=== PATIENT | female | born 1955 | race Two or more races ===

== ENCOUNTER → 2016-07-07 | Outpatient (CLI) | payer MEDICARE, OTHER ==
[~2016-07-07] VITALS: Ht 157.5 cm; Wt 76.4 kg
[~2016-07-07] MED LIST: ASPI-1093 PO; CEPH500 PO; HYDR-3965 PO; HYDR-4031 PO; HYDR200T4 PO; IBUP-2070 PO; PROZ10 PO; TRIAMCINOLONE 0.1% 15 GM OINTMENT TP ONE
[2016-07-07 14:07] VITALS: BP 112/70
== END | disposition home or self-care (01) ==
LOC: HBOWC 13:56
PROVIDERS: ATTEND Emergency Medicine
DX: I87.2 Venous insufficiency (chronic) (peripheral) (principal); L97.811 Non-pressure chronic ulcer of other part of right lower leg limited to breakdown of skin; Z86.718 Personal history of other venous thrombosis and embolism; F32.9 Major depressive disorder, single episode, unspecified